=== PATIENT | male | born 1970 | race Caucasian/White ===

== ENCOUNTER → 2018-05-10 12:44 | Outpatient (CLI) | payer OTHER, SELFPAY ==
[2018-05-10 14:49] LABS: Alanine Aminotransferase 24 U/L (12-78); Albumin Level 3.9 gm/dL (3.4-5.0); Albumin/Globulin Ratio 1.2 (1.1-1.8); Alkaline Phosphatase 70 U/L (46-116); Anion Gap 12.6 mEq/L (5-15); Aspartate Amino Transferase 18 U/L (15-37); Bilirubin,Total 0.5 mg/dL (0.2-1.0); Blood Urea Nitrogen 10 mg/dL (7-18); Calcium 9.1 mg/dL (8.5-10.1); Carbon Dioxide 29 mmol/L (21.0-32.0); Chloride 106 mmol/L (98-107); Chol/HDL Ratio 4.1 (1-3.5); Cholesterol 202 mg/dL (140-200); Creatinine,Serum 0.71 mg/dL (0.70-1.30); Estimated Glomerular Filt Rate 119 ml/min (>60); GFR (African American) 144 ML/MIN (>60); Globulin 3.2 gm/dl (1.3-3.2); Glucose 88 mg/dL (74-106); HDL Cholesterol 49 mg/dL (27-67); LDL Cholesterol 136 mg/dL (0-130); Potassium 4.6 mmoL/L (3.5-5.1); Sodium 143 mmol/L (136-145); Total Protein,Serum 7.1 gm/dL (6.4-8.2); Triglycerides 87 mg/dL (30-200); VLDL Cholesterol 17 mg/dL (0-40)
== END ==
PROVIDERS: Visit Provider Nurse Practitioner Family
DX: Z00.00 Encounter for general adult medical examination without abnormal findings (principal)
CPT/HCPCS: 36415; 80053; 80061

== ENCOUNTER 2021-01-03 16:36 | Emergency (ER) | payer OTHER, SELFPAY ==
[2021-01-03 17:30] VITALS: BP 132/91; PULSE 89; RESP 17; TEMP 37; O2SAT 97; BMI 24.5
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
[2021-01-03 19:06] VITALS: BP 132/91; PULSE 89; RESP 17; TEMP 37; O2SAT 97
== END 2021-01-03 19:16 | disposition home or self-care (01) ==
PROVIDERS: Emergency Provider Nurse Practitioner
DX: M62.838 Other muscle spasm (principal); M54.2 Cervicalgia; M25.512 Pain in left shoulder; F17.210 Nicotine dependence, cigarettes, uncomplicated
CPT/HCPCS: 72040; 73000; 73030; 96372; 99202; G0463

== ENCOUNTER 2021-03-09 11:28 | Emergency (ER) | payer OTHER, SELFPAY ==
[2021-03-09 12:25] VITALS: BP 130/97; PULSE 110; RESP 18; TEMP 37.9; O2SAT 97; BMI 25.7
[2021-03-09 12:37] LABS: UTC Influenza A Antigen Negative (Negative); UTC Influenza B Antigen Negative (Negative)
--- NOTE | 2021-03-09 13:00 | HMH.EDUTC ---
[facility] [place] Disposition Clinical Impression: Viral syndrome Disposition: Home, Self-Care Condition on Discharge: Good Instructions: DI for Fever (Symptom) -- Adult, DI for COVID-19 (Suspected or Confirmed ), Preventing the Spread of Coronavirus Discharge Instructions Additional Instructions: *Monitor Temp, Over the counter Motrin or Tylenol as directed/as needed Tylenol every 4 hours and Motrin every 6 hours (as long as your family doctor has told you that you can take it) for fever or pain. and straight to ER if unable to lower temp less than 101.0 after medication given *Warm salt water gargles may help to soothe the throat *Throat Lozenges *Warm fluids like tea with honey may help to soothe the throat *Sleep elevated *Humidifier/Vaporizer Follow up IMMEDIATELY for new or worsening symptoms or no Noticeable improvement over the next 48-72 hours. 911 for difficulty breathing or swallowing You were tested for today for COVID19 your test result should be back in the next 24-48 hours, you may check your COVID test result on the [facility] My Health Portal if you have trouble logging on you may call support for assistance You was given a handout with instructions for Self Quarantine and Self isolation for while you wait on test results and what to do if they are positive If you are positive the Health Dept will be contacting you also Make sure to take your Vitamins Vit. C Vit D and Zinc if you can take them Referrals: Philip Puente MD [Primary Care Provider] - As needed Forms: Work/School Release Time of Disposition: 13:00 Medical Decision Making - Domenico Inquiry Pt receiving controlled substance: No Domenico was queried for this patient: No Vital Signs: 03/09/21 12:25 Temperature 100.2 F H Temperature Source Oral Pulse Rate [Right Brachial] 110 H Respiratory Rate 18 Blood Pressure [Right Arm] 130/97 H Blood Pressure Mean [Right Arm] 108 Blood Pressure Source [Right Arm] Automatic Cuff Blood Pressure Position [Right Arm] Sitting 02 Sat by Pulse Oximetry 97 Oxygen Delivery Method Room Air - Lab Data Lab results reviewed: Yes: I reviewed the patient's lab results. Lab Results 03/09/21 12:27: Influenza Type A Ag Negative, Influenza Type B Ag Negative Orders (Tests/Meds): ORDERS Category Date Time Status Covid-19 Nasal PCR ([facility]) Routine Lab 03/09/21 12:27 Received [facility] [place] HPI - General Stated complaint: cough,headache,muscle pain Time Seen by Provider: 03/09/21 13:00 Mode of Arrival: Ambulatory Source of Information: Patient Limitations: No Limitations Description of Symptoms (Recalled from Triage Doc. by RN): PATIENT C/O CHILLS AND BODY ACHES X 2 DAYS HEENT Symptoms (Recalled from RN notes): No Resp Symptoms (Recalled from RN notes): No Skin Symptoms (Recalled from RN notes): No MS Symptoms (Recalled from RN notes): No Functional Status (Recalled from RN notes): WNL - History of Present Illness Provider Complaint: Patient states that he has been having bodyache, fatigue and chills for the last couple of days State that he feels like he has the flu States that today he was still having fever and achy headache so he came in to get checked - Related Data Allergies Allergy/AdvReac Type Severity Reaction Status Date / Time No Known Allergies Allergy Verified 12/26/17 14:40 - Worker's Comp Is this a Worker's Comp case?: No [facility] History - Hepatitis A Screen Drug use history?: No High risk sexual behaviors?: No History of sexually transmitted infection?: No Currently employed?: No Childcare worker?: No Do you have indoor plumbing?: Yes Do you have electricity?: Yes Attestation statement:: This patient has been screened for Hepatitis A risk factors. I have reviewed the patient's past medical history: Yes Medical History: Denies:: Cancer, Diabetes Mellitus Type 1, Diabetes Mellitus Type 2, MRSA Laterality Cases: Bilateral: Tonsillectomy Amputation: No - Social History Smoking Status:
[2021-03-09 13:11] VITALS: BP 130/97; PULSE 110; RESP 18; TEMP 37.9; O2SAT 97
== END 2021-03-09 13:15 | disposition home or self-care (01) ==
PROVIDERS: Emergency Provider Nurse Practitioner; PCP Internal Medicine Adolescent Medicine
DX: U07.1 COVID-19 (principal); B34.9 Viral infection, unspecified
CPT/HCPCS: 87804; 99202; C9803; G0463; U0003; U0005

== ENCOUNTER 2021-08-02 07:25 | Emergency (ER) | payer OTHER, SELFPAY ==
[2021-08-02 07:26] VITALS: BP 154/103; PULSE 88; RESP 16; TEMP 36.8; O2SAT 99; BMI 23.7
--- NOTE | 2021-08-02 07:43 | XR_ITS ---
FINAL REPORT CLINICAL HISTORY: wrist pain FINDINGS: RIGHT WRIST 3 views were obtained. There is no acute fracture or dislocation. There are mild degenerative changes. There is no soft tissue abnormality. IMPRESSION: Mild degenerative change with no acute bony abnormality. Reviewed, Interpreted and Dictated by Hilario Farr III, MD Transcribed by Marie Benton Authenticated and [facility]
--- NOTE | 2021-08-02 07:43 | HMH.EDGENADL ---
ED Disposition Clinical Impression: Wrist pain Disposition: Still a Patient Condition on Discharge: Undetermined Referrals: Provider,Referral, [Primary Care Provider] - - Critical Care Critical Care Time: No Attestation: On , the high probability of a clinically significant, sudden or life threatening deterioration of the following system(s) required my full and direct attention, intervention and personal management. The time I documented below is in addition to time spent performing reported procedures but includes the following listed in this critical care notation. Medical Decision Making - Medical Records Medical records reviewed: Yes: I reviewed the patient's medical records. - Domenico Inquiry Pt receiving controlled substance: No Vital Signs: 08/02/21 07:26 Temperature 98.3 F Temperature Source Oral Pulse Rate [Left Radial] 88 Respiratory Rate 16 Blood Pressure [Left Arm] 154/103 H Blood Pressure Mean [Left Arm] 120 Blood Pressure Source [Left Arm] Automatic Cuff Blood Pressure Position [Left Arm] Sitting 02 Sat by Pulse Oximetry 99 Oxygen Delivery Method Room Air Orders (Tests/Meds): ORDERS Category Date Time Status XR wrist RT min 3V Stat Exams 08/02/21 07:43 Ordered Complete Blood Count Auto Diff Stat Lab 08/02/21 07:42 Ordered Medical Decision Narrative: 51-year-old male presents with gradually worsening wrist pain. Patient is having mild paresthesias severe pain over the radial and ulnar aspect of the wrist and proximal hand. He has had no significant trauma. He is neurovascularly intact of the hand but his strength is weakened significantly mostly due to pain. Deviation of the wrist radially produces tenderness. He was given a dose of Decadron for steroids, Toradol 30 mg IM, basic lab and x-ray were ordered and will be pending for Dr. Carlos. General Adult HPI - General Chief complaint: PAIN Stated complaint: rt hand pain Time Seen by Provider: 08/02/21 07:43 Mode of Arrival: Ambulatory Limitations: No Limitations Description of Symptoms (Recalled from ER Triage Doc. by RN): Pt to ED C/O rt hand pain. No known injury. States that the pain began in his rt thumb on Monday, extending into his had and wrist yesterday. Advises that it worsens with movement. - History of Present Illness HPI narrative: 51-year-old male presents with right wrist pain that has been ongoing for 2 days. Patient works with his hands works on automobiles states that it started hurting yesterday morning after awakening. He works throughout the day felt like the pain was getting significantly worse. This morning he has sensation of decreased rewriter due to pain and is having paresthesias to the fingertips. Denies any obvious trauma that he recalls. He took Tylenol prior to arrival. - Related Data Allergies Allergy/AdvReac Type Severity Reaction Status Date / Time No Known Allergies Allergy Verified 12/26/17 14:40 [facility] History - Hepatitis A Screen Attestation statement:: This patient has been screened for Hepatitis A risk factors. Medical History: Denies:: Cancer, Diabetes Mellitus Type 1, Diabetes Mellitus Type 2, MRSA Laterality Cases: Bilateral: Tonsillectomy Amputation: No - Social History Smoking Status: Current every day smoker Tobacco Type: cigarettes, smokeless tobacco Alcohol Intake: never Occupational Status: employed Housing: house ROS Obtained: Yes Systems reviewed as appropriate & no additional complaints Physical Exam - General General appearance: alert, in no apparent distress - Head Head exam: atraumatic, normocephalic - Eye Eye exam: Present: EOMI - ENT ENT exam: Present: mucous membranes moist - Neck Neck exam: Present: trachea midline - Chest Chest inspection: Present: symmetric chest wall rise - Respiratory Respiratory exam: Absent: respiratory distress - Cardiovascular Cardiovascular exam: Present: regular rate - Abdominal
--- NOTE | 2021-08-02 07:48 | PC.NURSE ---
Pt to rad
[2021-08-02 08:06] LABS: Basophils # 0.1 K/mm3 (0-0.2); Basophils % 1.4 % (0.1-2.0); Eosinophils # 0.2 K/mm3 (0.0-0.4); Eosinophils % 2.3 % (0.1-12.0); Hemoglobin 16.4 g/dL (14.1-18.0); Lymphocytes # 1.1 K/mm3 (0.7-4.5); Lymphocytes % 13.2 % (10-50); Mean Corpuscular HGB Conc 34.9 g/dL (31.8-35.4); Mean Corpuscular Hemoglobin 30.9 pg (27.0-31.2); Mean Corpuscular Volume 88.5 fl (80-94); Mean Platelet Volume 9.3 fl (7.4-10.4); Monocytes # 0.5 K/mm3 (0.1-1.0); Monocytes % 5.6 % (1.7-9.3); Neutrophils # 6.3 K/mm3 (1.8-7.8); Neutrophils % 77.6 % (37.0-80.0); Platelet Count 177 K/mm3 (142-424); Red Blood Count 5.31 M/mm3 (4.60-6.20); Red Cell Distribution Width 13.8 % (11.5-17.5); White Blood Count 8.1 K/mm3 (4.8-10.8)
[2021-08-02 08:24] LABS: C-Reactive Protein 8.3 mg/L (0-4)
[2021-08-02 08:32] VITALS: BP 132/103; PULSE 112; RESP 16; O2SAT 100
[2021-08-02 08:37] VITALS: BP 132/103; PULSE 89; RESP 15; TEMP 36.8; O2SAT 98
== END 2021-08-02 08:39 | disposition still patient (30) ==
PROVIDERS: Emergency Provider Student in an Organized Health Care Education/Training Program
DX: M25.531 Pain in right wrist (principal)
CPT/HCPCS: 73110; 85025; 86140; 96374; 99284

== ENCOUNTER 2022-02-07 15:50 | Emergency (ER) | payer OTHER, SELFPAY ==
[2022-02-07 17:30] VITALS: BP 143/91; PULSE 114; RESP 19; TEMP 36.8; O2SAT 99; BMI 25.4
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
[2022-02-07 18:50] VITALS: BP 143/91; PULSE 114; RESP 19; TEMP 36.8; O2SAT 99
== END 2022-02-07 18:55 | disposition home or self-care (01) ==
PROVIDERS: Emergency Provider Nurse Practitioner; PCP Nurse Practitioner Family
DX: K21.9 Gastro-esophageal reflux disease without esophagitis (principal)
CPT/HCPCS: 99212; G0463

== ENCOUNTER 2023-06-09 10:00 | Emergency (ER) | payer OTHER, SELFPAY ==
[2023-06-09] VITALS (11 sets, daily range): BP systolic 136–165; BP diastolic 96–111; PULSE 64–84; RESP 9–20; TEMP 36.9; O2SAT 95–99; BMI 25.7
--- NOTE | 2023-06-09 10:01 | ECG_ITS ---
APPROVED REPORT Exam: Resting ECG HR:92 bpm ECG Measurements Heart Rate 92 AXES AZ 146 P 61 QRSd 98 QRS 61 QT 343 T 60 QTc 393 Conclusion SINUS RHYTHM NORMAL ECG UNCONFIRMED REPORT Electronically signed by : CORONA BARTLETT, 06/12/2023 03:04:11
--- NOTE | 2023-06-09 10:07 | [facility].EDCP ---
Discharge Plan Disposition Patient Disposition: Home, Self-Care Condition: Good Prescriptions Prescriptions: No Action omeprazole 20 mg capsule,delayed release(DR/EC) 20 mg PO DAILY Qty: 30 0RF naproxen 500 MG tablet 500 mg PO BID Qty: 30 0RF Rx Instructions: Take scheduled for 5 days. As needed after that prednisone 10 MG tablets,dose pack 10 mg PO UD DOSE PK Qty: 15 0RF Rx Instructions: Take taper 5, 4, 3, 2, 1 tablets Referrals Follow up/Referrals: Chasity Mccloud APRN [Primary Care Provider] - See instructions Activity Restrictions/Add. Instructions Additional Instructions/Restrictions: You were evaluated in the ER. You are appropriate for discharge at this time. Continue home medications as previously prescribed. Make an appointment with your primary care physician for reevaluation in 2 to 3 days to discuss your blood pressure and other ongoing symptoms. Return to the ER with any new, worsening, or otherwise concerning symptoms. Clinical Impressions Clinical Impression: Chest pressure, Fatigue Discharge ED Provider: Davide Rodriguez General Chief Complaint: Chest Pain Stated Complaint: Chest Pain Time Seen by Provider: 06/09/23 10:03 History of Present Illness HPI narrative: 53-year-old male presents to the ER with concerns of fatigue, generalized weakness, elevated blood pressure identified at work, vague feeling of chest pressure, left shoulder pain. Patient states all the symptoms have been going on for the last few days. He denies any cough, congestion, vomiting, diarrhea, fevers, or other associated symptoms. Patient states he feels like he has to force himself to do things and has low energy. Patient states he is still able to do his activities of daily living but has profound fatigue compared to his baseline. Patient states 2 days ago he sat in front of the air conditioning sweating profusely and soaked through his shirt at that time. Patient states he got checked out at work today and his blood pressure was 150s over 110s. He has no history of high blood pressure, does not take any daily medications, no known drug allergies. Patient states he rarely smokes, only occasionally drinks, and denies other illicit substances. Related Data Previous Rx's Medication Instructions Recorded naproxen 500 mg tablet 500 mg PO BID #30 tabs 08/02/21 prednisone 10 mg tablets in a dose 10 mg PO UD DOSE PK #15 tabs 08/02/21 pack omeprazole 20 mg capsule,delayed 20 mg PO DAILY #30 caps 02/07/22 release Allergies Allergy/AdvReac Type Severity Reaction Status Date / Time No Known Allergies Allergy Verified 12/26/17 14:40 [facility] Disclaimer: The information contained in this section may have been updated after the patient was seen, as this information can be updated by other users. Surgical History (Updated 02/07/22 @ 17:54 by Day Sheth RN) History of tonsillectomy History of appendectomy Social History (Updated 02/07/22 @ 17:54 by Day Sheth RN) Smoking Status: Current some day smoker tobacco type: cigarettes and smokeless tobacco second hand exposure: No alcohol intake: never current occupational status: employed Travel in the last 8 weeks: None housing: house ROS Obtained: Yes All systems reviewed & no additional complaints except as documented Constitutional Constitutional: Denies chills, Reports fatigue, Denies fever(s), Denies headache(s), Reports malaise and Denies weakness Eyes Eyes: Denies change in vision ENT Ears, Nose, Mouth, and Throat: Denies dizziness, Denies headache(s), Denies nasal congestion and Denies sore throat Cardiovascular Cardiovascular: Reports chest pain, Denies dyspnea and Denies leg edema Respiratory Respiratory: Denies cough and Denies dyspnea Gastrointestinal Gastrointestingal: Denies constipation, diarrhea, nausea or vomiting Genitourinary Male Genitourinary: Denies difficulty urinating Musculoskeletal Musculoskeletal: Reports arthralgias (L shoulder ache, no known injury), Denies myalgias, Denies numbness and Denies tingling Integumentary/Breasts Skin/Breast: Denies change in pigmentation Neurologic Neurologic: Denies dizziness, Denies headache(s), Denies numbness, Denies tingling and Denies weakness Endocrine Endocrine: Reports fatigue Physical Exam General General appearance: alert and in no apparent distress Head Head exam: atraumatic and normocephalic Eye Eye exam: Present PERRL and EOMI ENT ENT exam: Present mucous membranes moist Neck Neck exam: Present normal inspection and full ROM Chest Chest inspection: Present symmetric chest wall rise; Absent tenderness Respiratory Respiratory exam: Present normal lung sounds bilaterally; Absent respiratory distress, wheezes or stridor Cardiovascular Cardiovascular exam: Present regular rate and normal rhythm Abdominal Exam Abdominal exam: Present soft; Absent distention, tenderness, guarding or rebound Extremities Exam Extremities exam: Present full ROM; Absent tenderness Neurological Exam Neurological exam: Present alert and oriented X3; Absent motor sensory deficit Psychiatric Psychiatric exam: Present normal affect and normal mood Skin Skin exam: Present warm and dry HEART Score HEART Score HEART Score assessment performed?: Yes History (anamnesis): Moderately suspicious ECG: Non-specific disturbance Age: 45-65 years Risk factors: No known risk factors Troponin: </= normal limit HEART Score: 3 Critical Care Critical Care Time Critical Care Time: No Medical Decision Making Domenico Inquiry Pt receiving controlled substance: No Vital Signs Vital Signs: 06/09/23 10:01 06/09/23 10:55 06/09/23 11:00 Temperature 98.4 F Temperature Source Oral Pulse Rate 83 82 Pulse Rate [Right Radial] 84 Respiratory Rate 20 18 15 Blood Pressure 136/98 H 149/103 H Blood Pressure [Right Arm] 157/106 H Blood Pressure Mean Blood Pressure Mean [Right Arm] 123 Blood Pressure Source Blood Pressure Source [Right Arm] Automatic Cuff Blood Pressure Position [Right Arm] Sitting 02 Sat by Pulse Oximetry 95 96 96 Oxygen Delivery Method Room Air Room Air 06/09/23 11:30 06/09/23 12:00 06/09/23 12:30 Temperature Temperature Source Pulse Rate 83 78 72 Pulse Rate [Right Radial] Respiratory Rate 16 14 13 Blood Pressure 165/111 H 151/101 H 157/100 H Blood Pressure [Right Arm] Blood Pressure Mean Blood Pressure Mean [Right Arm] Blood Pressure Source Blood Pressure Source [Right Arm] Blood Pressure Position [Right Arm] 02 Sat by Pulse Oximetry 99 98 99 Oxygen Delivery Method 06/09/23 13:00 06/09/23 13:30 06/09/23 14:00 Temperature Temperature Source Pulse Rate 64 81 81 Pulse Rate [Right Radial] Respiratory Rate 12 11 L 14 Blood Pressure 144/101 H 154/103 H 153/105 H Blood Pressure [Right Arm] Blood Pressure Mean 123 130 Blood Pressure Mean [Right Arm] Blood Pressure Source Blood Pressure Source [Right Arm] Blood Pressure Position [Right Arm] 02 Sat by Pulse Oximetry 99 99 99 Oxygen Delivery Method 06/09/23 14:30 06/09/23 15:02 Temperature 98.4 F Temperature Source Oral Pulse Rate 72 76 Pulse Rate [Right Radial] Respiratory Rate 9 L 16 Blood Pressure 155/104 H 146/96 H Blood Pressure [Right Arm] Blood Pressure Mean 121 Blood Pressure Mean [Right Arm] Blood Pressure Source Automatic Cuff Blood Pressure Source [Right Arm] Blood Pressure Position [Right Arm] 02 Sat by Pulse Oximetry 99 Oxygen Delivery Method Room Air Lab Data Labs: Lab Results 06/09/23 10:03: WBC 8.1, RBC 4.93, Hgb 15.6, Hct 45.9, MCV 93.1, MCH 31.7 H, MCHC 34.1, RDW 14.6, Plt Count 184, MPV 9.3, Neut % (Auto) 78.0, Lymph % (Auto) 15.3, Dickens % (Auto) 3.9, Eos % (Auto) 1.8, Baso % (Auto) 1.0, Neut # (Auto) 6.3, Lymph # (Auto) 1.2, Dickens # (Auto) 0.3, Eos # (Auto) 0.2, Baso # (Auto) 0.1, Sodium 142, Potassium 3.7, Chloride 107, Carbon Dioxide 30, Anion Gap 8.7, BUN 10, Creatinine 0.70, Estimated Creat Clear 154, Estimated GFR 118, Est GFR ( Amer) 143, Glucose 105 H, Calcium 8.8, Total Bilirubin 0.5, AST 34, ALT 29, Alkaline Phosphatase 72, Troponin I < 0.01, NT-Pro-B Natriuret Pep 21.3, Total Protein 7.0, Albumin 4.3, Globulin 2.7, Albumin/Globulin Ratio 1.6 06/09/23 13:15: Troponin I < 0.01 06/09/23 10:03 06/09/23 10:03 Response Orders (Tests/Meds): ED MEDICATIONS Discontinued Medications Generic Name Dose Route Start Last Admin Trade Name Freq PRN Reason Stop Dose Admin Aspirin 324 mg 06/09/23 10:09 06/09/23 10:18 Aspirin 81mg Chewable Tablet PO 06/09/23 10:10 324 mg ONCE ONE Administration Sodium Chloride 10 ml 06/09/23 10:13 Sodium Chloride 0.9% 10ml Flush Syringe IV 07/09/23 10:12 NEEDED PRN Maintain IV Site ORDERS Category Date Time Status CXR --portable [XR chest portable] Stat Exams 04/19/24 10:08 Completed BNP [NT Pro Brain Natriuretic Pep.] Stat Lab 06/09/23 10:03 Completed CBC w/Auto Diff [Complete Blood Count Auto Diff] Stat Lab 06/09/23 10:03 Completed CMP [Comprehensive Metabolic Panel] Stat Lab 06/09/23 10:03 Completed Troponin I Q3H Lab 06/09/23 13:15 Completed Troponin I Q3H Lab 06/09/23 16:15 Ordered Troponin I Stat Lab 06/09/23 10:03 Completed MDM Narrative Medical Decision Narrative: In summary, this 53year old male presents to the emergency department today with concerns of generalized malaise, fatigue, elevated blood pressure at work, vague chest pressure with left shoulder discomfort despite no injury. On initial evaluation patient is mildly hypertensive with blood pressure 157/106 on arrival, cardiopulmonary exam is reassuring, no peripheral edema, no reproducible chest wall tenderness, no findings of trauma or injury on MSK exam. Differential diagnosis includes but is not limited to ACS, pneumothorax, hypertension, I considered the possibility of a viral syndrome but patient does not have any other associated symptoms. Also considered possibility of electrolyte abnormality, dehydration given patient's profound sweating in the last few days. Based on these concerns, I ordered basic labs, cardiac workup, chest x-ray. ECG personally interpreted demonstrates normal sinus rhythm, rate 92, normal axis, normal intervals, no STEMI. Patient received chewable aspirin for treatment. Labs personally reviewed demonstrate CBC with no leukocytosis, good hemoglobin at 15.6, no findings of anemia, CMP with normal electrolytes, good kidney function, no transaminitis. Initial troponin undetectably low at less than 0.01. Given patient had onset of symptoms today with chest pressure, I believe repeat troponin is necessary. XR personally interpreted demonstrates no acute intrathoracic abnormality on my personal interpretation, see radiology read for final interpretation.. Patient was placed into ED observation at 11:05 AM. He was placed in the ED observation for serial troponins and to be monitored on the alarm security or surveillance monitor while in the ER. Serial troponins are ordered to rule out evolving cardiac pathology and to preclude unnecessary admission. Repeat troponin was also undetectably low at less than 0.01. While in ED observation he was on the monitor without any abnormalities, he was also frequently reassessed without any changes in his symptoms. Patient is appropriate for discharge at this time. Patient was given instructions on symptomatic management, follow up instructions, and return precautions for the emergency department. Patient indicated understanding and was discharged in stable condition. Patient was in ED observation for 3 hours 45 minutes
--- NOTE | 2023-06-09 10:08 | XR_ITS ---
FINAL REPORT CLINICAL HISTORY: Chest pain COMPARISON: None FINDINGS: A single portable view of the chest was obtained. The heart size and pulmonary vascularity are within normal limits. The mediastinum is within normal limits. No acute pulmonary abnormality is identified. The bony thorax is intact. IMPRESSION: No active cardiopulmonary disease. Reviewed, Interpreted and Dictated by Ricki Collins MD Transcribed by Brenda Love Authenticated and . [facility]
[2023-06-09 10:16] LABS: Basophils # 0.1 K/mm3 (0-0.2); Eosinophils # 0.2 K/mm3 (0.0-0.4); Eosinophils % 1.8 % (0.1-12.0); Hematocrit 45.9 % (42.0-52.0); Hemoglobin 15.6 g/dL (14.1-18.0); Lymphocytes # 1.2 K/mm3 (0.7-4.5); Lymphocytes % 15.3 % (10-50); Mean Corpuscular HGB Conc 34.1 g/dL (31.8-35.4); Mean Corpuscular Hemoglobin 31.7 pg (27.0-31.2); Mean Corpuscular Volume 93.1 fl (80-94); Mean Platelet Volume 9.3 fl (7.4-10.4); Monocytes # 0.3 K/mm3 (0.1-1.0); Monocytes % 3.9 % (1.7-9.3); Neutrophils # 6.3 K/mm3 (1.8-7.8); Platelet Count 184 K/mm3 (142-424); Red Blood Count 4.93 M/mm3 (4.60-6.20); Red Cell Distribution Width 14.6 % (11.5-17.5); White Blood Count 8.1 K/mm3 (4.8-10.8)
[2023-06-09] MEDS: ASPIRIN 81MG CHEWABLE TABLET 324 MG PO (10:18)
[2023-06-09 10:30] LABS: Alanine Aminotransferase 29 U/L (12-78); Albumin Level 4.3 g/dl (3.5-5.0); Albumin/Globulin Ratio 1.6 (1.1-1.8); Alkaline Phosphatase 72 U/L (38-126); Anion Gap 8.7 mEq/L (5-15); Aspartate Amino Transferase 34 U/L (17-59); Bilirubin,Total 0.5 mg/dl (0.2-1.3); Blood Urea Nitrogen 10 mg/dl (9-20); Calcium 8.8 mg/dl (8.4-10.2); Carbon Dioxide 30 mmol/L (22.0-30.0); Chloride 107 mmol/L (98-107); Creatinine Clearance Estimated 154 mL/min (50-200); Estimated Glomerular Filt Rate 118 ml/min (>60); GFR (African American) 143 ML/MIN (>60); Globulin 2.7 g/dL (1.3-3.2); Glucose 105 mg/dl (74-100); Potassium 3.7 mmoL/L (3.5-5.1); Sodium 142 mmol/L (136-145)
[2023-06-09 10:42] LABS: NT Pro Brain Natriuretic Pep. 21.3 pg/mL (0-125)
[2023-06-09 10:54] LABS: Troponin I < 0.01 ng/ml (0.00-0.034)
[2023-06-09 14:42] LABS: Troponin I < 0.01 ng/ml (0.00-0.034)
== END 2023-06-09 15:06 | disposition home or self-care (01) ==
PROVIDERS: Emergency Provider Emergency Medicine; PCP Nurse Practitioner Family
DX: R07.9 Chest pain, unspecified (principal); R03.0 Elevated blood-pressure reading, without diagnosis of hypertension; R53.83 Other fatigue; F17.210 Nicotine dependence, cigarettes, uncomplicated
CPT/HCPCS: 71045; 80053; 83880; 84484; 85025; 93005; 99284